=== PATIENT | female | born 1930 | race Caucasian/White ===

== ENCOUNTER 2018-09-23 17:54 | Inpatient (IN) | payer OTHER ==
[~2018-09-23] VITALS: Ht 162.6 cm; Wt 46.9 kg
[2018-09-23] MEDS ORDERED: SODIUM CHLORIDE 0.9% 1000ML 2,000 ML IV ONE (18:13)
[2018-09-23 18:28] LABS: CREATININE 2.3 mg/dL (0.5-1.5); POTASSIUM 3.1 mmol/L (3.5-5.1)
[2018-09-23 18:42] LABS: ALBUMIN 3.6 g/dL (3.5-5.0); BILIRUBIN,TOTAL 1.6 mg/dL (0.2-1.0); TOTAL PROTEIN, SERUM 8.4 g/dL (6.0-8.3)
[2018-09-23 18:52] LABS: BASOPHILS % (AUTO) 0.1 % (0.0-5.0); HEMATOCRIT 41.2 % (36-48); LYMPHOCYTES % (AUTO) 8.1 % (21.0-51.0); MEAN CORPUSCULAR HEMOGLOBIN 33.2 pg (27.0-33.0); MEAN CORPUSCULAR HGB CONC 33.4 g/dL (32.0-36.0); MEAN CORPUSCULAR VOLUME 99.7 fL (79-99); MONOCYTES % (AUTO) 8.3 % (3.0-13.0); NEUTROPHILS % (AUTO) 83.5 % (40.0-77.0); PLATELET COUNT (AUTO) 231 K/uL (130-400); RED BLOOD CELL COUNT(AUTO) 4.13 MIL/uL (4.00-5.50); RED CELL DISTRIBUTION WIDTH 13.8 % (11.0-15.5); WHITE BLOOD COUNT (AUTO) 14.5 K/uL (4.8-10.8)
[2018-09-23] MEDS ORDERED: POTASSIUM BICARB/CIT AC 25 MEQ TABLET.EFF ONE (20:56)
[2018-09-23 21:03] LABS: BILIRUBIN,URINE SMALL (NEGATIVE); COLOR,URINE YELLOW (YELLOW); GLUCOSE, URINE (UA) NEGATIVE (NEGATIVE); KETONES,URINE NEGATIVE (NEGATIVE); LEUKOCYTE ESTERASE ,URINE SMALL (NEGATIVE); NITRATE,URINE NEGATIVE (NEGATIVE); OCCULT BLOOD,URINE LARGE (NEGATIVE); PH,URINE 5.5 (5.0-8.0); PROTEIN,URINE 30 mg/dL (NEGATIVE)
[2018-09-23 21:18] LABS: APPEARANCE,URINE CLOUDY (CLEAR)
[2018-09-23 21:27] LABS: BACTERIA,URINE Moderate /HPF (None Seen)
[2018-09-23 21:28] LABS: RBC,URINE 0-1 /HPF (0-1)
[2018-09-23] MEDS: SODIUM CHLORIDE 0.9% 1000ML 1,000 ML IV SCH (23:06)
[2018-09-23] MEDS ORDERED: HYDRALAZINE HCL 20 MG/ML VIAL IV PRN (23:15)
[2018-09-23] MEDS ORDERED: ACETAMINOPHEN 325 MG TAB PO PRN ×2 (23:15)
[2018-09-23] MEDS ORDERED: ONDANSETRON HCL 4 MG/2 ML VIAL IV PRN (23:15)
[2018-09-23] MEDS: CEFTRIAXONE SODIUM 1 GM IV SCH (23:15)
[2018-09-24] MEDS ORDERED: CEFTRIAXONE SODIUM 1 GM ONE (00:27)
[2018-09-24] MEDS ORDERED: SODIUM CHLORIDE 0.9% 100 ML IV ONE (00:27)
[2018-09-24] MEDS ORDERED: SODIUM CHLORIDE 0.9% 1000ML 1,000 ML IV ONE (00:27)
[2018-09-24 02:45] VITALS: BP 147/92
[2018-09-24] MEDS: SODIUM CHLORIDE 0.9% 1000ML 1,000 ML IV SCH ×2 (07:48→15:33)
[2018-09-24 08:12] VITALS: BP 129/68
[2018-09-24] MEDS: FAMOTIDINE/PF 20 MG/2 ML VIAL IV SCH (09:27)
--- NOTE | 2018-09-24 10:28 | NUR ---
PT UPDATE PT COMING IN AND OUT OF AFIB, PT AGITATED, WANTING TO GO HOME, MD NOTIFIED.
[2018-09-24 11:19] VITALS: BP 135/78
[2018-09-24] MEDS ORDERED: LIDOCAINE HCL-MPF 1% 2ML VIAL IVP PRN (13:45)
[2018-09-24] MEDS ORDERED: POTASSIUM CHLORIDE 20 MEQ ERTAB PO PRN (13:45)
[2018-09-24] MEDS: POTASSIUM CHLORIDE 20 MEQ ERTAB PO SCH (14:06)
[2018-09-24 16:13] VITALS: BP 138/74
--- NOTE | 2018-09-24 18:00 | NUR ---
[facility] CM met with pt and daughter discussed dc plans. Pt is independent prior to admission, lives at home alone, daughter lives close by. Denies any equipments/services. Pt feels safe to go back home, daughter able to assist with transportation and needs. Pt is a self pay, C assisting, states sometimes goes to Clinical if she feels sick, community resources packet given. DC plan to home once stable. CM to cont to follow up. Addendum: 09/24/18 at 2024 by KAREN PRICE LVN CM Amended: Links added.
[2018-09-24 19:46] VITALS: BP 133/60
[2018-09-24] MEDS: POTASSIUM CHLORIDE 10MEQ/100ML 100 ML IV PRN (21:44)
[2018-09-24 23:28] VITALS: BP 132/82
[2018-09-25] MEDS: CEFTRIAXONE SODIUM 1 GM IV SCH ×2 (00:35→22:56)
[2018-09-25] MEDS: SODIUM CHLORIDE 0.9% 1000ML 1,000 ML IV SCH ×5 (00:36→23:15)
[2018-09-25 04:00] VITALS: BP 116/77
[2018-09-25 05:02] LABS: MEAN CORPUSCULAR HEMOGLOBIN 33.8 pg (27.0-33.0); MEAN CORPUSCULAR HGB CONC 33.4 g/dL (32.0-36.0); MEAN CORPUSCULAR VOLUME 101.3 fL (79-99); PLATELET COUNT (AUTO) 171 K/uL (130-400); RED BLOOD CELL COUNT(AUTO) 3.26 MIL/uL (4.00-5.50); RED CELL DISTRIBUTION WIDTH 13.5 % (11.0-15.5); WHITE BLOOD COUNT (AUTO) 8.4 K/uL (4.8-10.8)
[2018-09-25 05:14] LABS: ALBUMIN 2.1 g/dL (3.5-5.0); BILIRUBIN,TOTAL 0.4 mg/dL (0.2-1.0); CREATININE 0.8 mg/dL (0.5-1.5); MAGNESIUM 2.3 mg/dL (1.80-2.40); POTASSIUM 3.2 mmol/L (3.5-5.1); TOTAL PROTEIN, SERUM 5.6 g/dL (6.0-8.3)
[2018-09-25 08:06] VITALS: BP 136/75
[2018-09-25] MEDS: POTASSIUM CHLORIDE 10MEQ/100ML 100 ML IV PRN (09:35)
[2018-09-25] MEDS: FAMOTIDINE/PF 20 MG/2 ML VIAL IV SCH (09:36)
[2018-09-25] MEDS: METOPROLOL TARTRATE 25 MG TAB PO SCH ×2 (10:47→21:20)
[2018-09-25] MEDS: ASPIRIN 81MG TAB.CHEW PO SCH (10:47)
[2018-09-25 11:54] VITALS: BP 135/79
[2018-09-25] MEDS: POTASSIUM CHLORIDE 20 MEQ ERTAB PO SCH (13:45)
--- NOTE | 2018-09-25 14:31 | NUR ---
RD notification Pt tolerating current diet order, however recommend discontinue renal diet secondary to low potassium levels, Rec to modify diet to Heart Healthy diet. Pt reports appetite is getting better. Pt with no report of GI distress and good PO intake (75%). Pt requests nutritional shake as Pt drinks at home to help get her through the day; Rec to add Ensure BID, between meals. Pt LBM 09/24/18. Pt with severe protein-calorie maln risk (Alb 2.1); Rec to add 30mL ProMod BID. Pt monitored labs: K 3.2, BUN 25, Ca 7.6, AST 59, Alb 2.1, TCK 752. RD to continue to monitor. Please notify RD as additional nutrition concerns arise. Thank you. Addendum: 09/25/18 at [address] Amended: Links added.
[2018-09-25 16:00] VITALS: BP 161/81
--- NOTE | 2018-09-25 16:42 | NUR ---
CM Note: SNF vs Assisted Living CM met with pt and daughter Barbara Baldwin [phone] regarding request for SNF vs Assisted Living. Explained the difference. Pt is a self pay, aware either facility will have to be private pay. Requested lists for locan SNF and Assisting living, pt daughter given a lists. Daughter states she will call and ask for estimate and will call CM once decision made given CM#[phone]. Informed pt and daughter will have Dept Aging visit pt to see if they may assist at home. Pt and daughter agreeable, emailed beena, will come vist pt first thing tomorrow. Primary nurse aware. CM to cont to follow up.
[2018-09-25 19:46] VITALS: BP 133/77
[2018-09-25] MEDS: POTASSIUM CHLORIDE 10% ELIXIR 20 MEQ/15 ML UDCUP PO PRN ×2 (21:20→23:22)
--- NOTE | 2018-09-25 21:20 | NUR ---
MEDS SHIFT ASSESSMENT DONE, PLEASE REFER TO CHART. DUE MEDS ADMINISTERED, TOLERATED WELL. RE-ITERATED FALL PRECAUTIONS, PT VERBALIZES UNDERSTANDING. CALL LIGHT WITHIN REACH. WILL MONITOR PT.
--- NOTE | 2018-09-25 23:10 | NUR ---
STEPHANIE ARNDT, HOSPITALIST STATE FARM AGENT TEAM MEMBER, PAGED VIA ANSWERING SERVICE. HAIR CALLED BACK AND REFERRED PT'S BNP RESULTS. NEW ORDERS RECEIVED, PLEASE REFER TO CPOE.
[2018-09-25] MEDS ORDERED: FUROSEMIDE 10 MG/ML 2ML VIAL ONE (23:20)
[2018-09-26 01:00] VITALS: BP 157/85
--- NOTE | 2018-09-26 01:00 | NUR ---
BM PT STARTED HAVING LOOSE STOOLS. PCP ASKED TO COLLECT STOOL ON THIRD EPISODE FOR LAB. RE-ITERATED ON FALL PRECAUTIONS. BEDSIDE COMMODE ALREADY AVAILABLE FOR PT TO USE.
[2018-09-26 04:12] VITALS: BP 129/70
[2018-09-26] MEDS: SODIUM CHLORIDE 0.9% 1000ML 1,000 ML IV SCH (04:14)
[2018-09-26 04:52] LABS: HEMATOCRIT 31.6 % (36-48); MEAN CORPUSCULAR HEMOGLOBIN 34.1 pg (27.0-33.0); MEAN CORPUSCULAR HGB CONC 34.2 g/dL (32.0-36.0); MEAN CORPUSCULAR VOLUME 99.7 fL (79-99); PLATELET COUNT (AUTO) 181 K/uL (130-400); RED BLOOD CELL COUNT(AUTO) 3.17 MIL/uL (4.00-5.50); RED CELL DISTRIBUTION WIDTH 13.6 % (11.0-15.5); WHITE BLOOD COUNT (AUTO) 6.8 K/uL (4.8-10.8)
[2018-09-26 05:03] LABS: BASOPHILS % (MANUAL) 1 % (0-2); LYMPHOCYTES % (MANUAL) 26 % (22-44); MAN.DIFF COMMENT-IMPRESSION MANUAL DIFFERENTIAL; MONOCYTES % (MANUAL) 7 % (2-9); PLATELET MORPHOLOGY COMMENT ADEQUATE; SEGMENTED NEUTROPHILS % 66 % (40-70)
[2018-09-26 05:17] LABS: CREATININE 0.7 mg/dL (0.5-1.5); POTASSIUM 3.3 mmol/L (3.5-5.1)
[2018-09-26] MEDS ORDERED: FUROSEMIDE 10 MG/ML 2ML VIAL IV SCH (06:00)
[2018-09-26] MEDS: POTASSIUM CHLORIDE 10% ELIXIR 20 MEQ/15 ML UDCUP PO PRN (06:17)
--- NOTE | 2018-09-26 06:20 | NUR ---
MEDS AWAKENED PT FOR DUE MEDS. POTASSIUM LEVEL=3.3, STARTED ON PO POTASSIUM PER PROTOCOL. ASSISTED TO BEDSIDE COMMODE. PCP IN TO ATTEND TO PT. FOR MORE CARE.
[2018-09-26 07:00] VITALS: BP 145/85
[2018-09-26] MEDS ORDERED: FAMOTIDINE 20MG TAB 20 MG TAB PO SCH (09:00)
--- NOTE | 2018-09-26 09:08 | NUR ---
PT UPDATE Pt with SR rhythm at this time, no episode of dysrhythmia noted since last night according tele monitor, pt will continue to be monitored.
[2018-09-26] MEDS: ASPIRIN 81MG TAB.CHEW PO SCH (09:11)
[2018-09-26] MEDS: METOPROLOL TARTRATE 25 MG TAB PO SCH (09:12)
--- NOTE | 2018-09-26 10:00 | NUR ---
CM Note: Declined placement dcp to home CM met with pt and daughter. Unable to pay SNF/Assisted Living privately at this time. Dept of Aging came to see pt this morning, will assist with provider and possible other needs at home once dc'd. Daughter will take patient to her house on DC. Primary nurse aware. AJ SPOTLIGHT OPERATOR aware. DCP to home. CM to cont to follow up
[2018-09-26] MEDS ORDERED: POTASSIUM CHLORIDE 20 MEQ ERTAB PO SCH (11:30)
[2018-09-26] MEDS ORDERED: METO25 PO (11:31)
[2018-09-26] MEDS ORDERED: FAMO20TA8 PO (11:31)
[2018-09-26] MEDS ORDERED: CEFD300C3 PO (11:31)
[2018-09-26] MEDS ORDERED: ASPI-1005 PO (11:31)
--- NOTE | 2018-09-26 12:25 | NUR ---
PT UPDATE Pt pending 2-D Echo results, primary nurse to notify PA the results before d/c, Radiology Echo lab paged, no response yet, nursing will continue to follow up.
--- NOTE | 2018-09-26 13:34 | NUR ---
PT D/C UPDATE Pt pending transportation from her daughter.
[2018-09-26] MEDS: POTASSIUM CHLORIDE 20 MEQ ERTAB PO SCH (13:45)
--- NOTE | 2018-09-26 13:58 | NUR ---
PT PENDING SPOOL HAULER Call pt daughter via cell phone to remind her pt is ready for pick out hand. Daughter stated she is running some errands and should be back by 1500. Nursing will continue to follow up.
--- NOTE | 2018-09-26 17:40 | NUR ---
PT D/C HOME SAFELY Pt d/c home safely accompanied with daughter, pt with no current PCP provided with a list of PCP, pt strongly encouraged to see the diesel powerplant mechanic helper as soon as possible, pt also provided with information per family service caseworker on how to arrange home health or assisted living, pt verbalized understanding of d/c instruction, daughter at bedside and acknowledged information provided, pt IV taken out, no complication noted, pt taken down off the floor in wheelchair accompanied by daughter. All questions and concerns answered.
== END 2018-09-26 16:00 | disposition home or self-care (01) | DRG 690 ==
LOC: EDH 17:54 → EDHIP 17:55 → 3DH 09-24 02:13
PROVIDERS: ADMIT Internal Medicine; ATTEND Internal Medicine
DX: N39.0 Urinary tract infection, site not specified (principal); M62.82 Rhabdomyolysis; N17.9 Acute kidney failure, unspecified; E44.0 Moderate protein-calorie malnutrition; E87.0 Hyperosmolality and hypernatremia; Z68.1 Body mass index [BMI] 19.9 or less, adult; I48.91 Unspecified atrial fibrillation; E86.0 Dehydration; E87.6 Hypokalemia; I50.9 Heart failure, unspecified; R55 Syncope and collapse
CPT/HCPCS: 36415; 70450; 71045; 80048; 80053; 81001; 82550; 83735; 83880; 84484; 85025; 85027; 93005; 93306; 97039; G0378; J0696; J1940; J3490; J7030

== ENCOUNTER 2018-10-13 18:25 | Emergency (ER) | payer SELFPAY ==
[~2018-10-13 18:25] MED LIST: ASPI-1005 PO; CEFD300C3 PO; FAMO20TA8 PO; METO25 PO
[2018-10-13 19:20] LABS: BASOPHILS % (AUTO) 1.3 % (0.0-5.0); EOSINOPHILS % (AUTO) 1.2 % (0.0-8.0); HEMATOCRIT 36.7 % (36-48); LYMPHOCYTES % (AUTO) 33.2 % (21.0-51.0); MEAN CORPUSCULAR HEMOGLOBIN 33.5 pg (27.0-33.0); MEAN CORPUSCULAR HGB CONC 33.6 g/dL (32.0-36.0); MEAN CORPUSCULAR VOLUME 99.6 fL (79-99); MONOCYTES % (AUTO) 12.3 % (3.0-13.0); PLATELET COUNT (AUTO) 233 K/uL (130-400); RED BLOOD CELL COUNT(AUTO) 3.68 MIL/uL (4.00-5.50); RED CELL DISTRIBUTION WIDTH 13.2 % (11.0-15.5)
[2018-10-13 19:24] LABS: B-TYPE NATRIURETIC PEPTIDE 289 pg/mL (0-100)
[2018-10-13 19:30] LABS: INR 0.94 (0.85-1.15); PARTIAL THROMBOPLASTIN TIME 25.5 SEC (26.3-35.5); PROTHROMBIN TIME 9.9 SEC (9.6-11.6)
[2018-10-13 19:31] LABS: CREATININE 0.8 mg/dL (0.5-1.5); POTASSIUM 4.1 mmol/L (3.5-5.1)
[2018-10-13 19:36] LABS: ALBUMIN 3.3 g/dL (3.5-5.0); BILIRUBIN,TOTAL 0.4 mg/dL (0.2-1.0); TOTAL PROTEIN, SERUM 7.4 g/dL (6.0-8.3)
[2018-10-13 19:54] LABS: APPEARANCE,URINE Clear (CLEAR); BILIRUBIN,URINE Negative (NEGATIVE); COLOR,URINE Yellow (YELLOW); GLUCOSE, URINE (UA) Negative (NEGATIVE); KETONES,URINE Negative (NEGATIVE); LEUKOCYTE ESTERASE ,URINE Trace (NEGATIVE); NITRATE,URINE Negative (NEGATIVE); OCCULT BLOOD,URINE Negative (NEGATIVE); PROTEIN,URINE Negative (NEGATIVE)
[2018-10-13 20:08] LABS: BACTERIA,URINE Rare /HPF (None Seen); RBC,URINE 0-1 /HPF (0-1)
== END 2018-10-13 22:22 | disposition home or self-care (01) ==
LOC: EDH 18:25
DX: M79.601 Pain in right arm (principal); R03.0 Elevated blood-pressure reading, without diagnosis of hypertension
CPT/HCPCS: 36415; 71045; 72125; 73030; 73060; 80053; 81001; 83880; 84484; 85025; 85610; 85730; 93005

== ENCOUNTER 2019-12-26 16:47 | Inpatient (IN) | payer OTHER ==
[~2019-12-26] VITALS: Ht 152.4 cm; Wt 42.4 kg
[2019-12-26] MEDS ORDERED: ACETAMINOPHEN 325 MG TAB ONE (17:13)
[2019-12-26] MEDS ORDERED: SODIUM CHLORIDE 0.9% 1000ML 1,000 ML IV ONE (17:13)
[2019-12-26 17:15] LABS: BASOPHILS % (AUTO) 0.5 % (0.0-5.0); HEMATOCRIT 39.7 % (36-48); LYMPHOCYTES % (AUTO) 18.8 % (21.0-51.0); MEAN CORPUSCULAR HEMOGLOBIN 31.1 pg (27.0-33.0); MEAN CORPUSCULAR HGB CONC 33.2 g/dL (32.0-36.0); MEAN CORPUSCULAR VOLUME 93.6 fL (79-99); MONOCYTES % (AUTO) 10.2 % (3.0-13.0); NEUTROPHILS % (AUTO) 70.2 % (40.0-77.0); PLATELET COUNT (AUTO) 337 K/uL (130-400); RED BLOOD CELL COUNT(AUTO) 4.24 MIL/uL (4.00-5.50); RED CELL DISTRIBUTION WIDTH 13.2 % (11.0-15.5)
[2019-12-26 17:16] LABS: APPEARANCE,URINE Clear (CLEAR); BILIRUBIN,URINE Negative (NEGATIVE); COLOR,URINE Yellow (YELLOW); GLUCOSE, URINE (UA) Negative (NEGATIVE); KETONES,URINE Trace mg/dL (NEGATIVE); LEUKOCYTE ESTERASE ,URINE Trace (NEGATIVE); NITRATE,URINE Negative (NEGATIVE); OCCULT BLOOD,URINE Negative (NEGATIVE); PH,URINE 6.5 (5.0-8.0); PROTEIN,URINE Negative (NEGATIVE)
[2019-12-26] MEDS ORDERED: ACETAMINOPHEN 650 MG SUPPOSITORY RC ONE (17:19)
[2019-12-26 17:22] LABS: CARBON DIOXIDE 28 mmol/L (21-32); CHLORIDE 102 mmol/L (101-111); CREATININE 0.6 mg/dL (0.5-1.5); GLOMERULAR FILTR. RATE CALC 100 mL/min (>60); GLUCOSE,RANDOM 108 mg/dL (70-105); POTASSIUM 3.6 mmol/L (3.5-5.1); SODIUM SERUM 138 mmol/L (136-145); UREA NITROGEN, BLOOD 9 mg/dL (7-18)
[2019-12-26 17:25] LABS: INR 0.96 (0.85-1.15); PARTIAL THROMBOPLASTIN TIME 22.9 SEC (26.3-35.5); PROTHROMBIN TIME 10.4 SEC (9.6-11.6)
[2019-12-26 17:27] LABS: AMORPHOUS SEDIMENT,UR Moderate /LPF (None Seen); BACTERIA,URINE Few /HPF (None Seen); MUCUS,URINE Few LPF (None Seen); RBC,URINE 0-1 /HPF (0-1); SQUAMOUS EPITHELIAL CELL,UR 0-2 /HPF (0-2)
[2019-12-26 17:33] LABS: ALANINE AMINOTRANSFERASE 42 U/L (12-78); ALBUMIN 2.5 g/dL (3.5-5.0); ASPARTATE AMINOTRANSFERASE 37 U/L (10-37); BILIRUBIN,TOTAL 0.5 mg/dL (0.2-1.0); CREATINE KINASE, TOTAL 33 U/L (21-232); MYOGLOBIN 52 ng/mL (10-92); TROPONIN I < 0.04 ng/mL (0.00-0.06)
[2019-12-26] MEDS ORDERED: METOPROLOL TARTRATE 1 MG/ML 5ML VIAL IV ONE (18:15)
[2019-12-26] MEDS ORDERED: ENOXAPARIN SODIUM 30 MG/0.3 ML SQ ONE (18:31)
[2019-12-26] MEDS ORDERED: LACTULOSE 20 GM/30 ML UDCUP PO PRN (19:15)
[2019-12-26] MEDS ORDERED: ONDANSETRON HCL 4 MG/2 ML VIAL IV PRN (19:15)
[2019-12-26] MEDS ORDERED: HYDRALAZINE HCL 20 MG/ML VIAL IV PRN (19:15)
[2019-12-26] MEDS ORDERED: ACETAMINOPHEN 325 MG TAB PO PRN (19:15)
[2019-12-26] MEDS ORDERED: SODIUM CHLORIDE 0.9% 1000ML 1,000 ML IV SCH (19:15)
[2019-12-26 19:34] LABS: HEMOGLOBIN A1C 5.2 % (4.0-6.0)
[2019-12-26 19:40] LABS: THYROID STIMULATING HORMONE 6.02 uIU/mL (0.36-3.74)
[2019-12-26] MEDS: CEFTRIAXONE SODIUM 1 GM IVP SCH (19:45)
[2019-12-26] MEDS ORDERED: METOPROLOL TARTRATE 25 MG TAB ONE (20:12)
[2019-12-26] MEDS ORDERED: CEFTRIAXONE SODIUM 1 GM ONE (20:13)
[2019-12-26] MEDS ORDERED: FAMOTIDINE/PF 20 MG/2 ML VIAL IV ONE (20:13)
[2019-12-26] MEDS ORDERED: FAMOTIDINE 20MG TAB 20 MG TAB ONE (20:13)
[2019-12-26] MEDS: METOPROLOL TARTRATE 25 MG TAB PO SCH (21:00)
[2019-12-26] MEDS: FAMOTIDINE 20MG TAB 20 MG TAB PO SCH (21:00)
[2019-12-27] MEDS ORDERED: LORAZEPAM 2 MG/ML 1 ML VIAL ONE (00:17)
[2019-12-27 05:05] LABS: BASOPHILS % (AUTO) 0.6 % (0.0-5.0); EOSINOPHILS % (AUTO) 2.5 % (0.0-8.0); HEMATOCRIT 36.2 % (36-48); LYMPHOCYTES % (AUTO) 16.7 % (21.0-51.0); MEAN CORPUSCULAR HEMOGLOBIN 31.2 pg (27.0-33.0); MEAN CORPUSCULAR HGB CONC 32.9 g/dL (32.0-36.0); MEAN CORPUSCULAR VOLUME 94.8 fL (79-99); MONOCYTES % (AUTO) 11.1 % (3.0-13.0); NEUTROPHILS % (AUTO) 68.6 % (40.0-77.0); PLATELET COUNT (AUTO) 291 K/uL (130-400); RED BLOOD CELL COUNT(AUTO) 3.82 MIL/uL (4.00-5.50); RED CELL DISTRIBUTION WIDTH 13.2 % (11.0-15.5); WHITE BLOOD COUNT (AUTO) 6.5 K/uL (4.8-10.8)
[2019-12-27 05:34] LABS: CREATININE 0.5 mg/dL (0.5-1.5); POTASSIUM 3.7 mmol/L (3.5-5.1)
--- NOTE | 2019-12-27 07:35 | NUR ---
patient still in ER department, awaiting for patient to be able to transfer to medical floor in order to be able to initiate skilled Physical Therapy evaluation as ordered by Ivis Dimas NP Addendum: 12/27/19 at 0737 by DOMINGA MASSEY, PT PT Amended: Links added.
[2019-12-27] MEDS ORDERED: FAMOTIDINE 20MG TAB 20 MG TAB ONE (08:00)
[2019-12-27] MEDS ORDERED: ENOXAPARIN SODIUM 30 MG/0.3 ML SQ ONE (08:00)
[2019-12-27] MEDS ORDERED: METOPROLOL TARTRATE 25 MG TAB ONE (08:01)
[2019-12-27] MEDS: METOPROLOL TARTRATE 25 MG TAB PO SCH ×2 (09:00→20:29)
[2019-12-27] MEDS: FAMOTIDINE 20MG TAB 20 MG TAB PO SCH ×2 (09:00→20:29)
[2019-12-27] MEDS: ENOXAPARIN SODIUM 30 MG/0.3 ML SQ SCH (09:00)
[2019-12-27] MEDS ORDERED: METOPROLOL TARTRATE 1 MG/ML 5ML VIAL IV PRN (09:30)
[2019-12-27] MEDS: DEXTROSE 5%-LACTATED RINGERS 1,000 ML IV SCH ×2 (09:30→20:52)
[2019-12-27] MEDS ORDERED: DEXTROSE 5%-LACTATED RINGERS 1,000 ML IV ONE (10:12)
[2019-12-27 12:31] VITALS: BP 159/89
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
[2019-12-27 18:54] VITALS: BP 171/93
[2019-12-27 19:59] VITALS: BP 105/83
[2019-12-27] MEDS: CEFTRIAXONE SODIUM 1 GM IVP SCH (20:29)
[2019-12-27] MEDS: ACETAMINOPHEN 325 MG TAB PO PRN (20:30)
[2019-12-27 23:49] VITALS: BP 145/74
[2019-12-28 03:54] VITALS: BP 152/98
[2019-12-28 05:00] LABS: BASOPHILS % (AUTO) 0.4 % (0.0-5.0); HEMATOCRIT 35.3 % (36-48); MEAN CORPUSCULAR HEMOGLOBIN 31.3 pg (27.0-33.0); MEAN CORPUSCULAR HGB CONC 33.1 g/dL (32.0-36.0); MEAN CORPUSCULAR VOLUME 94.4 fL (79-99); MONOCYTES % (AUTO) 7.7 % (3.0-13.0); NEUTROPHILS % (AUTO) 82.6 % (40.0-77.0); PLATELET COUNT (AUTO) 284 K/uL (130-400); RED BLOOD CELL COUNT(AUTO) 3.74 MIL/uL (4.00-5.50); RED CELL DISTRIBUTION WIDTH 13.2 % (11.0-15.5); WHITE BLOOD COUNT (AUTO) 10.6 K/uL (4.8-10.8)
[2019-12-28 05:18] LABS: CREATININE 0.6 mg/dL (0.5-1.5)
[2019-12-28] MEDS ORDERED: POTASSIUM CHLORIDE 20MEQ/100ML 100 ML IV PRN (05:45)
[2019-12-28] MEDS ORDERED: LIDOCAINE HCL-MPF 1% 2ML VIAL IV PRN (05:45)
[2019-12-28] MEDS ORDERED: POTASSIUM CHLORIDE 10% ELIXIR 20 MEQ/15 ML UDCUP PO PRN (05:45)
[2019-12-28] MEDS ORDERED: POTASSIUM CHLORIDE 20 MEQ ERTAB PO PRN (05:45)
[2019-12-28] MEDS: LIDOCAINE HCL-MPF 1% 2ML VIAL IV PRN ×2 (06:21→14:54)
[2019-12-28] MEDS: POTASSIUM CHLORIDE 20MEQ/100ML 100 ML IV PRN ×3 (06:21→22:32)
[2019-12-28 08:00] VITALS: BP 181/99
[2019-12-28] MEDS ORDERED: MAGNESIUM 2GM PREMIX 50ML 50 ML IV SCH (08:15)
[2019-12-28] MEDS: FAMOTIDINE 20MG TAB 20 MG TAB PO SCH ×2 (10:00→22:32)
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
[2019-12-28] MEDS: ENOXAPARIN SODIUM 30 MG/0.3 ML SQ SCH (10:01)
[2019-12-28] MEDS: METOPROLOL TARTRATE 25 MG TAB PO SCH ×2 (10:01→22:33)
[2019-12-28] MEDS ORDERED: FOLIC ACID 5 MG/ML 10 ML VIAL IV SCH (11:15)
[2019-12-28] MEDS ORDERED: COMPOUND IV REFRIGERATED 1 EACH IVSOLN MISC PRN (11:30)
[2019-12-28 12:00] VITALS: BP 167/95
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
[2019-12-28] MEDS: DEXTROSE 5%-LACTATED RINGERS 1,000 ML IV SCH (12:52)
[2019-12-28] MEDS: THIAMINE HCL 100 MG/ML 2ML VIAL IVP SCH (12:52)
[2019-12-28 16:00] VITALS: BP 136/71
--- NOTE | 2019-12-28 16:00 | NUR ---
NO FURTHER SCANS OR OTHER TESTING TO BE DONE. FAMILY HAS DECIDED TO GO HOSPICE ROUTE. DR. FREITAS CONSULT HAS BEEN ABORTED AN ALL SCANS CX.DISPENSING AND MEASURING OPTICIAN HAS BEEN NOTIFIED.
--- NOTE | 2019-12-28 16:09 | NUR ---
RD NOTIFICATION Pt admitted with debility, poor appetite, AFIB. High Malnutrition risk with moderate to severe fat and muscle loss. Low BMI for age. PO intake at 0% today. Pt s/p Swallow evaluation; Recommended NTL, pureed foods as per Pt daughter. Pt with Sacral Ulcer. Monitored labs: K 3.0, BG 129, BNP 213, HDL 107, Alb 2.5. Recommend update diet order Recommend Ensure TID, Chilled to NTL Recommend Iraj BID, 500mg Vitamin C BID, 220mg Zinc QD for wound healing support RD to continue to monitor. Please notify RD as additional nutrition concern arise. Thank you. Addendum: 12/28/19 at [address] Amended: Links added.
[2019-12-28 19:10] VITALS: BP 162/120
[2019-12-28] MEDS: HYDRALAZINE HCL 25 MG TABLET PO PRN (22:33)
[2019-12-28] MEDS: CEFTRIAXONE SODIUM 1 GM IVP SCH (22:47)
[2019-12-28 23:42] VITALS: BP 175/103
--- NOTE | 2019-12-28 23:42 | NUR ---
NOTE CONTACTED ANSWERING SERVICE TO PAGE HOSPITALIST MACHINE DESIGN ENGINEER. ANGELINA TY RENTAL COUNTER CLERK ANSWERED. NOTIFIED OF BP 175/103 P 81. PATIENT SPIT OUT A PORTION OF HER EARLIER MEDS THAT WERE GIVEN WITH APPLESAUCE. ORDERS RECEIVED FOR A ONE TIME DOSE OF CLONIDINE 0.1MG AND PLACE UNDER TONGUE.
[2019-12-28] MEDS ORDERED: CLONIDINE HCL 0.1 MG TABLET ONE (23:44)
[2019-12-28] MEDS ORDERED: CLONIDINE HCL 0.1 MG TABLET PO SCH (23:45)
[2019-12-29] VITALS (7 sets, daily range): BP systolic 129–165; BP diastolic 75–111
[2019-12-29] MEDS: DEXTROSE 5%-LACTATED RINGERS 1,000 ML IV SCH ×2 (01:00→15:34)
--- NOTE | 2019-12-29 04:30 | NUR ---
NOTE CONTACTED ANGELINA TY NP FOR BP 164/106 P102. RECEIVED ORDER FOR A ONE TIME DOSE OF METOPROLOL 5MG IV.
[2019-12-29] MEDS ORDERED: METOPROLOL TARTRATE 1 MG/ML 5ML VIAL IV SCH (04:45)
[2019-12-29 05:44] LABS: BASOPHILS % (AUTO) 0.3 % (0.0-5.0); HEMATOCRIT 30.2 % (36-48); LYMPHOCYTES % (AUTO) 13.1 % (21.0-51.0); MEAN CORPUSCULAR HEMOGLOBIN 30.8 pg (27.0-33.0); MEAN CORPUSCULAR HGB CONC 32.8 g/dL (32.0-36.0); MEAN CORPUSCULAR VOLUME 94.1 fL (79-99); MONOCYTES % (AUTO) 7.5 % (3.0-13.0); NEUTROPHILS % (AUTO) 78.8 % (40.0-77.0); PLATELET COUNT (AUTO) 259 K/uL (130-400); RED BLOOD CELL COUNT(AUTO) 3.21 MIL/uL (4.00-5.50); RED CELL DISTRIBUTION WIDTH 13.5 % (11.0-15.5)
[2019-12-29 06:12] LABS: CREATININE 0.5 mg/dL (0.5-1.5); POTASSIUM 3.6 mmol/L (3.5-5.1)
--- NOTE | 2019-12-29 09:30 | NUR ---
FOLLOW UP COMPLETED. Pt CURRENTLY ON PUREED, HONEY-THICK LIQUIDS. PER Pt'S DAUGHTER, Pt WILL BE HOSPICE. RECOMMEND CONTINUED MODIFIED DIET IN THE HOSPITAL. Pt TO ENJOY FOOD AND LIQUIDS REQUESTED IN THE HOME SETTING IN ORDER TO KEEP HER COMFORTABLE. PLEASE NOTE, Pt WITH HIGH RISK FOR ASPIRATION WITH THIN LIQUIDS. Addendum: 12/29/19 at 1533 by MARINO RONQUILLO, [facility] Amended: Links added.
[2019-12-29] MEDS: FAMOTIDINE 20MG TAB 20 MG TAB PO SCH ×2 (10:21→20:40)
[2019-12-29] MEDS: ENOXAPARIN SODIUM 30 MG/0.3 ML SQ SCH (10:21)
[2019-12-29] MEDS: THIAMINE HCL 100 MG/ML 2ML VIAL IVP SCH (10:22)
[2019-12-29] MEDS: METOPROLOL TARTRATE 25 MG TAB PO SCH ×2 (10:22→20:40)
[2019-12-29] MEDS: ACETAMINOPHEN 325 MG TAB PO PRN (10:29)
[2019-12-29] MEDS ORDERED: ACETAMINOPHEN-CODEINE 300/30MG TAB ONE (10:36)
[2019-12-29] MEDS: ACETAMINOPHEN-CODEINE 300/30MG TAB PO PRN ×2 (10:56→20:50)
--- NOTE | 2019-12-29 12:42 | NUR ---
CM Note: [facility] pending approval CM spoke to Baldwin w/[facility], verbalized pt currently pending approval w/admin as pt is selfpay. As per Baldwin there is a bed at [facility] available today if pt get approved. EMS arranged and faxed for today, primary nurse to call [facility] once pt ready to DC. Primary nurse Karma RN aware. CM to continue to follow up.
[2019-12-29] MEDS: FOLIC ACID 5 MG/ML 10 ML VIAL IV SCH (16:59)
[2019-12-29] MEDS: CEFTRIAXONE SODIUM 1 GM IVP SCH (20:40)
[2019-12-30] MEDS: DEXTROSE 5%-LACTATED RINGERS 1,000 ML IV SCH ×2 (03:36→16:22)
[2019-12-30] MEDS: ACETAMINOPHEN-CODEINE 300/30MG TAB PO PRN ×4 (03:39→20:40)
[2019-12-30 03:41] VITALS: BP 158/81
[2019-12-30 06:30] LABS: BASOPHILS % (AUTO) 0.7 % (0.0-5.0); HEMATOCRIT 31.1 % (36-48); LYMPHOCYTES % (AUTO) 18.1 % (21.0-51.0); MEAN CORPUSCULAR HEMOGLOBIN 30.9 pg (27.0-33.0); MEAN CORPUSCULAR HGB CONC 32.2 g/dL (32.0-36.0); MONOCYTES % (AUTO) 10.5 % (3.0-13.0); NEUTROPHILS % (AUTO) 66.5 % (40.0-77.0); PLATELET COUNT (AUTO) 262 K/uL (130-400); RED BLOOD CELL COUNT(AUTO) 3.24 MIL/uL (4.00-5.50); RED CELL DISTRIBUTION WIDTH 13.6 % (11.0-15.5)
[2019-12-30 06:47] LABS: CREATININE 0.5 mg/dL (0.5-1.5); POTASSIUM 3.6 mmol/L (3.5-5.1)
[2019-12-30] MEDS: ENOXAPARIN SODIUM 30 MG/0.3 ML SQ SCH (09:04)
[2019-12-30] MEDS: METOPROLOL TARTRATE 25 MG TAB PO SCH ×2 (09:04→20:12)
[2019-12-30] MEDS: FAMOTIDINE 20MG TAB 20 MG TAB PO SCH ×2 (09:05→20:12)
[2019-12-30] MEDS: THIAMINE HCL 100 MG/ML 2ML VIAL IVP SCH (09:06)
[2019-12-30] MEDS: FOLIC ACID 5 MG/ML 10 ML VIAL IV SCH (09:06)
[2019-12-30 09:15] VITALS: BP 168/86
--- NOTE | 2019-12-30 10:00 | NUR ---
FOLLOW UP COMPLETED. ETL DEVELOPER COORDINATED WITH NURSE MEDINA AT THIS TIME. NURSE STATES Pt AND FAMILY HAVE DECIDED TO GO TO HOSPICE. Pt'S CURRENT DIET RECOMMENDATIONS ARE FOR PUREED, HONEY-THICK LIQUIDS; TOLERATING. IF Pt GOES HOSPICE IN THE HOME SETTING, P.O. TRIALS TO BE PROVIDED REQUESTED. PLEASE CONSULT ETL DEVELOPER NEEDED. Addendum: 12/30/19 at 1319 by MARINO RONQUILLO [facility] Amended: Links added.
[2019-12-30 12:25] VITALS: BP 163/94
--- NOTE | 2019-12-30 12:30 | NUR ---
Hospice-Call from [facility] stated that [facility] has approved [facility] services for pt. at [facility]. Mei on her way to hospital to meet with pt's dtr. at bedside and will notify this worker when [facility] has cleared to accept pt.; Tiki/AMALIA made aware.
--- NOTE | 2019-12-30 12:56 | NUR ---
SW revisited, dtr at bedside reports pt was accepted by [facility]. Call placed to [facility] and reported that they are still pending approval from [employer]; dtr and CM informed.
--- NOTE | 2019-12-30 16:17 | NUR ---
CM Note: EMS arranged CM arranged and faxed EMS today, [facility]. Spoke to Josey canela/[facility] made aware of approved transport. Primary nurse to call [facility] once pt ready to DC. Primary nurse Karma RN aware. CM to continue to follow up.
[2019-12-30] MEDS: HYDRALAZINE HCL 25 MG TABLET PO PRN (16:23)
[2019-12-30 16:27] VITALS: BP 178/107
[2019-12-30 19:56] VITALS: BP 174/81
[2019-12-30] MEDS: CEFTRIAXONE SODIUM 1 GM IVP SCH (20:12)
[2019-12-31] VITALS (7 sets, daily range): BP systolic 163–189; BP diastolic 86–117
--- NOTE | 2019-12-31 | NUR ---
ROUNDS PATIENT RESTING IN BED WITH OU CLOSED. EASILY AROUSED. NO COMPLAINTS OF PAIN VOICED. VITALS STABLE. AFEBRILE. RESP EVEN AND UNLABORED. NO SOB NOTED. ON ROOM AIR. PATIENT WILL YELL AT TIMES. REDIRECTED TO TIME AND PLACE. TOTAL CARE RENDERED Q2H AND PRN. NO SIGNS OF DISTRESS NOTED. CALL LIGHT WITHIN REACH. WILL CONTINUE TO BE OBSERVED. Addendum: 12/31/19 at 0621 by ERVIN SEVILLA RN RN Amended: Links added.
[2019-12-31] MEDS: HYDRALAZINE HCL 25 MG TABLET PO PRN ×3 (03:50→16:51)
--- NOTE | 2019-12-31 08:05 | NUR ---
HOSPICE-SW spoke w/[facility] who reported that pt. has not yet been accepted by [facility]; she is due to meet w/admissions at 0900 today and will follow up with this worker.
[2019-12-31] MEDS: DEXTROSE 5%-LACTATED RINGERS 1,000 ML IV SCH ×2 (08:22→20:10)
[2019-12-31] MEDS: ACETAMINOPHEN-CODEINE 300/30MG TAB PO PRN (08:29)
[2019-12-31] MEDS: METOPROLOL TARTRATE 25 MG TAB PO SCH ×2 (08:29→21:36)
[2019-12-31] MEDS: FAMOTIDINE 20MG TAB 20 MG TAB PO SCH ×2 (08:30→21:36)
[2019-12-31] MEDS: THIAMINE HCL 100 MG/ML 2ML VIAL IVP SCH (08:30)
[2019-12-31] MEDS: ENOXAPARIN SODIUM 30 MG/0.3 ML SQ SCH (08:30)
[2019-12-31] MEDS: FOLIC ACID 5 MG/ML 10 ML VIAL IV SCH (08:45)
--- NOTE | 2019-12-31 10:05 | NUR ---
CM Note: approved for [facility], pending to [facility] bed at [facility] CM spoke to VERONICA Salas, as per VERONICA Orozco unable to accept pt at this time, [facility] pending to secure bed possibly at [facility]. EMS arranged for today in case, primary nurse to call [facility] once pt ready to DC. Primary nruse Karma RN aware. CM to continue to follow up.
--- NOTE | 2019-12-31 12:15 | NUR ---
HOSPICE-Call from Mei/[facility], stating that pt. is accepted for tomorrow at [facility] in [address] [place], [facility] [id number], tel#[phone] AMALIA Fairbanks made aware.
--- NOTE | 2019-12-31 17:28 | NUR ---
RD FOLLOW UP Pt continues with Heart Healthy, Puree, NTL diet. Poor PO intake. Pending hospice. Recommend continue diet order for pleasure feedings. RD to continue to monitor.
[2019-12-31] MEDS: CEFTRIAXONE SODIUM 1 GM IVP SCH (21:36)
[2020-01-01 04:00] VITALS: BP 174/98
[2020-01-01] MEDS: DEXTROSE 5%-LACTATED RINGERS 1,000 ML IV SCH ×2 (04:03→09:30)
[2020-01-01 08:00] VITALS: BP 181/105
[2020-01-01] MEDS: METOPROLOL TARTRATE 25 MG TAB PO SCH (08:12)
[2020-01-01] MEDS: FAMOTIDINE 20MG TAB 20 MG TAB PO SCH (08:12)
[2020-01-01] MEDS: ENOXAPARIN SODIUM 30 MG/0.3 ML SQ SCH (08:13)
--- NOTE | 2020-01-01 09:40 | NUR ---
HOSPICE--Call from Mei/[facility] stating she has made contact with [facility] in [place] re-transfer of pt., however, she was informed that they are requiring pt's dtr. to complete documents. Mei/[facility] to notify this worker once all is clear for transfer. DME has already been delivered. Aries and ONEIDA Dowling made aware.
--- NOTE | 2020-01-01 11:20 | NUR ---
HOSPICE-[facility] called stating that pt. may be transferred to [facility] now; all DME is set up and paperwork completed. AMALIA Fairbanks made aware and reminded of cut off time for [facility].
[2020-01-01 12:00] VITALS: BP_SYST 172; BP_SYST 192; BP_DIAS 75; BP_DIAS 98
--- NOTE | 2020-01-01 13:25 | NUR ---
DISCHARGE PATIENT/DAUGHTER (LANDON) GIVEN DISCHARGE INSTRUCTIONS VIA TEACH BACK. 20G RAC DISCONTINUED, TIP INTACT. TELE PACK REMOVED AND RETURNED TO TELEMETRY. PATIENT TO BE TRANSFERRED TO [facility] BY EMS. EMS PRESENT TO TRANSFER PATIENT AT THIS TIME. PATIENT STABLE AT THIS TIME, DAUGHTER AT BEDSIDE. REPORT GIVEN TO JOE REDMOND WITH [facility].
== END 2020-01-01 13:25 | DRG 689 ==
LOC: EDH 16:47 → EDHIP 16:48 → OBSVTOIN 16:48 → 3BH 12-27 12:02
PROVIDERS: ADMIT Family Medicine; ATTEND Family Medicine
DX: N39.0 Urinary tract infection, site not specified (principal); E43 Unspecified severe protein-calorie malnutrition; M48.54XA Collapsed vertebra, not elsewhere classified, thoracic region, initial encounter for fracture; R64 Cachexia; Z68.1 Body mass index [BMI] 19.9 or less, adult; E86.0 Dehydration; I48.91 Unspecified atrial fibrillation; I11.0 Hypertensive heart disease with heart failure; I50.9 Heart failure, unspecified; I71.2 Thoracic aortic aneurysm, without rupture; R62.7 Adult failure to thrive; R29.6 Repeated falls; X37.0XXA Hurricane, initial encounter; Z51.5 Encounter for palliative care; Z74.01 Bed confinement status; Z90.12 Acquired absence of left breast and nipple
CPT/HCPCS: 36415; 71045; 71250; 80048; 80053; 80061; 81001; 82550; 82607; 82746; 83036; 83605; 83735; 83874; 83880; 84132; 84145; 84443; 84484; 85025; 85610; 85730; 86592; 86900; 86901; 87040; 87088; 92610; 93005; G0378; J0696; J1650; J2060; J3411; J3475; J3480; J3490; J7030